=== PATIENT | male | born 1955 | race Hispanic/Latino ===

== ENCOUNTER → 2020-09-02 | Outpatient (CLI) | payer MEDICARE ==
[~2020-09-02] MED LIST: REGADENOSON 0.4 MG/5 ML SYR IV ONE
== END ==
LOC: NM 09:52
PROVIDERS: ATTEND Internal Medicine
DX: R07.9 Chest pain, unspecified (principal); R06.02 Shortness of breath; M79.605 Pain in left leg; M79.604 Pain in right leg
CPT/HCPCS: 78452; 93017; 93306; 93925; A9502; J2785